=== PATIENT | female | born 1960 | race Caucasian/White ===

== ENCOUNTER 2021-07-25 20:02 | Inpatient (IN) | payer MEDICAID, OTHER ==
[~2021-07-25] VITALS: Ht 154.9 cm; Wt 104.0 kg
[2021-07-25] MEDS ORDERED: methylPREDNISolone SOD SUCC 125 MG/2 ML VL IV ONE (22:00)
[2021-07-25] MEDS ORDERED: ASPirin 325 MG TAB PO ONE (22:00)
[2021-07-25] MEDS ORDERED: ALBUTEROL SULF 2.5 MG/0.5ML(0.5%) NEB SOLN NEB ONE (22:00)
[2021-07-25] MEDS ORDERED: IPRATROPIUM BROM 0.5 MG/2.5ML INH SOL NEB ONE (22:00)
[2021-07-25 22:56] LABS: Basophils # (auto) 0 10 ^3/uL (0-0.2); Basophils % (auto) 0.6 % (0.0-2.0); Eosinophils # (auto) 0.1 10 ^3/uL (0-0.8); Eosinophils % (auto) 1.1 % (0.0-7.0); Hematocrit 34.2 % (36.0-46.0); Hemoglobin 11.1 g/dL (12.2-16.2); Lymphocytes # (auto) 1.3 10 ^3/uL (0.4-5.4); Lymphocytes % (auto) 19.6 % (10.0-50.0); Mean Corpuscular Hemoglobin 29.7 pg (28.0-32.0); Mean Corpuscular Hgb Conc. 32.4 g/dL (32.0-36.0); Mean Corpuscular Volume 91.7 fL (80.0-100.0); Monocytes # (auto) 0.5 10 ^3/uL (0-1.3); Monocytes % (auto) 7.9 % (0.0-12.0); Neutrophils # (auto) 4.8 10 ^3/uL (1.6-8.6); Neutrophils % (auto) 70.8 % (37.0-80.0); Nucleated Red Blood Cells % 0.1 %; Red Blood Cells 3.73 10^6/uL (4.0-5.20); Red Cell Distribution Width 16.1 % (11.8-14.3); White Blood Cell 6.8 10^3/uL (4.4-10.8)
[2021-07-25 23:14] LABS: Albumin 3.1 g/dL (3.4-5.0); BUN/Creatinine Ratio 17.1; Calcium 8.7 mg/dL (8.5-10.1); Potassium 4.1 mmol/L (3.5-5.1)
[2021-07-25 23:17] LABS: Bilirubin, Total 0.3 mg/dL (0.2-1.0); Total Protein 6.5 g/dL (6.4-8.2)
[2021-07-25 23:25] LABS: Urine Bacteria FEW /hpf (None Seen); Urine Blood Negative /uL (Negative); Urine Mucus FEW (None Seen); Urine Specific Gravity 1.025 (1.001-1.035); Urine WBC 1 /hpf (0 - 5)
[2021-07-26] MEDS ORDERED: MORPHINE SULFATE INJECTION 2 MG/ML SYRG IV PRN ×2
[2021-07-26] MEDS ORDERED: ONDANSETRON HCL 4 MG/2 ML VIAL IV PRN
[2021-07-26] MEDS ORDERED: NITROGLYCERIN 0.4 MG SL TAB SL PRN
[2021-07-26] MEDS ORDERED: cefTRIAXone 1GM/50ML D5W 50 ML IV ONE (00:30)
[2021-07-26] MEDS ORDERED: FUROSEMIDE 40 MG/4 ML VIAL IV ONE (00:30)
[2021-07-26] MEDS ORDERED: IPRATROPIUM BROM 0.5 MG/2.5ML INH SOL NEB PRN (00:30)
[2021-07-26] MEDS ORDERED: AZITHROMYCIN 500MG/ 250ML 250 ML IV ONE (00:30)
[2021-07-26] MEDS ORDERED: ALBUTEROL SULF 2.5 MG/0.5ML(0.5%) NEB SOLN NEB PRN ×2 (00:30→10:00)
[2021-07-26 00:59] LABS: Cholesterol 184 mg/dL (< 200)
[2021-07-26 01:00] VITALS: BP 146/77
[2021-07-26 01:00] LABS: Alcohol, Urine < 3.0 mg/dL (0-10); Amphetamine Screen, Urine NEGATIVE (NEGATIVE); Barbiturate Scree,Urine NEGATIVE (NEGATIVE); Benzodiazephine Screen, Urine NEGATIVE (NEGATIVE); Cannabinoid Screen, Urine NEGATIVE (NEGATIVE); Cocaine Screen, Urine NEGATIVE (NEGATIVE); Opiate Scree,Urine NEGATIVE (NEGATIVE); Phencyclidine Screen, Urine NEGATIVE (NEGATIVE)
[2021-07-26 01:02] LABS: HDL Cholesterol 48 mg/dL (40-59); LDL Cholesterol 103 mg/dL (< 100); Triglycerides 152 mg/dL (< 150)
[2021-07-26] MEDS ORDERED: FUROSEMIDE 40 MG/4 ML VIAL IV SCH (06:00)
[2021-07-26] MEDS: cefTRIAXone 1GM/50ML D5W 50 ML IV SCH (09:22)
[2021-07-26] MEDS ORDERED: DEXTROSE (50%) 50ML SYRG IV PRN (09:45)
[2021-07-26] MEDS ORDERED: ACETAMINOPHEN 500 MG TAB PO PRN (10:00)
[2021-07-26] MEDS ORDERED: traMADol HCL 50 MG TAB PO PRN (10:00)
[2021-07-26] MEDS ORDERED: PROMETHAZINE HCL 25 MG/ML 1ML IV PRN (10:00)
[2021-07-26] MEDS: AZITHROMYCIN 500MG/ 250ML 250 ML IV SCH (10:09)
[2021-07-26] MEDS: methylPREDNISolone SOD SUCC 40 MG/ML VL IV SCH ×2 (10:10→21:52)
[2021-07-26] MEDS: NICOTINE 7MG/24HR TOPICAL PATCH TD SCH (10:10)
[2021-07-26] MEDS: ACCU-CHEK COMFORT CURVE STRIP VI SCH ×3 (11:41→21:30)
[2021-07-26] MEDS: InsuLIN REG 1unit/0.01ml Soln (100units/ml) SC SCH ×3 (11:45→21:53)
[2021-07-26] MEDS: IPRATROPIUM BROM 0.5 MG/2.5ML INH SOL NEB SCH ×3 (11:48→23:54)
[2021-07-26] MEDS: ALBUTEROL SULF 2.5 MG/0.5ML(0.5%) NEB SOLN NEB SCH ×3 (11:48→23:54)
[2021-07-26] MEDS: ENOXAPARIN SOD 40 MG/0.4 ML SYRINGE SC SCH (11:49)
[2021-07-26] MEDS ORDERED: ACET250T3 PO (13:10)
[2021-07-26] MEDS ORDERED: GLYB5TAB8 PO (13:10)
[2021-07-26] MEDS ORDERED: FURO1TAB33 PO (13:10)
[2021-07-26] MEDS ORDERED: LISI-716 PO (13:10)
[2021-07-26] MEDS ORDERED: SERT-377 PO (13:10)
[2021-07-26] MEDS ORDERED: METF-370 PO (13:10)
[2021-07-26] MEDS ORDERED: LEVO100T8 PO (13:10)
[2021-07-26 17:00] VITALS: BP 156/75
[2021-07-26] MEDS: BUDESONIDE (INHALATION) 0.5 MG/2 ML NEB NEB SCH (18:30)
[2021-07-26] MEDS: ATORVASTATIN 20 MG TAB PO SCH (21:52)
[2021-07-26 22:00] VITALS: BP 108/54
[2021-07-26] MEDS ORDERED: BUDESONIDE (INHALATION) 180 MCG IH IN SCH (22:00)
[2021-07-27 05:00] VITALS: BP 131/65
[2021-07-27] MEDS: ACCU-CHEK COMFORT CURVE STRIP VI SCH ×4 (06:24→21:10)
[2021-07-27] MEDS: InsuLIN REG 1unit/0.01ml Soln (100units/ml) SC SCH ×4 (06:32→21:18)
[2021-07-27] MEDS: IPRATROPIUM BROM 0.5 MG/2.5ML INH SOL NEB SCH ×3 (08:01→19:02)
[2021-07-27] MEDS: ALBUTEROL SULF 2.5 MG/0.5ML(0.5%) NEB SOLN NEB SCH ×3 (08:01→19:02)
[2021-07-27] MEDS: cefTRIAXone 1GM/50ML D5W 50 ML IV SCH (08:54)
[2021-07-27] MEDS: ENOXAPARIN SOD 40 MG/0.4 ML SYRINGE SC SCH (08:54)
[2021-07-27] MEDS: ASPirin 81 mg TAB PO SCH (08:54)
[2021-07-27] MEDS: AZITHROMYCIN 500MG/ 250ML 250 ML IV SCH (08:54)
[2021-07-27] MEDS: methylPREDNISolone SOD SUCC 40 MG/ML VL IV SCH ×2 (08:54→21:10)
[2021-07-27 09:00] VITALS: BP 140/68
[2021-07-27] MEDS ORDERED: ZINC SULFATE 220mg CAP or TAB PO SCH (10:00)
[2021-07-27] MEDS: NICOTINE 7MG/24HR TOPICAL PATCH TD SCH (10:00)
[2021-07-27] MEDS ORDERED: CHOLECALCIFEROL (VITD3) 2,000 UNIT CAP/TAB PO SCH (10:00)
[2021-07-27] MEDS: BUDESONIDE (INHALATION) 0.5 MG/2 ML NEB NEB SCH ×2 (10:00→19:02)
[2021-07-27] MEDS ORDERED: ASCORBIC ACID 1,000 MG TAB PO SCH (10:00)
[2021-07-27] MEDS ORDERED: LISINOPRIL 10 MG TAB PO ONE (12:00)
[2021-07-27] MEDS ORDERED: SERTRALINE HCL 50 MG TAB PO ONE (12:00)
[2021-07-27 13:00] VITALS: BP 162/85
[2021-07-27 17:00] VITALS: BP 129/66
[2021-07-27] MEDS: ATORVASTATIN 20 MG TAB PO SCH (21:09)
[2021-07-27] MEDS: ZOLPIDEM TARTRATE 5 MG TAB PO PRN (21:21)
[2021-07-27 22:00] VITALS: BP 111/54
[2021-07-28] MEDS: IPRATROPIUM BROM 0.5 MG/2.5ML INH SOL NEB SCH ×4 (00:14→19:14)
[2021-07-28] MEDS: ALBUTEROL SULF 2.5 MG/0.5ML(0.5%) NEB SOLN NEB SCH ×4 (00:15→19:14)
[2021-07-28 05:00] VITALS: BP 115/61
[2021-07-28] MEDS: ACCU-CHEK COMFORT CURVE STRIP VI SCH ×4 (06:07→21:18)
[2021-07-28] MEDS: InsuLIN REG 1unit/0.01ml Soln (100units/ml) SC SCH ×4 (06:12→21:19)
[2021-07-28] MEDS: BUDESONIDE (INHALATION) 0.5 MG/2 ML NEB NEB SCH ×2 (06:16→19:14)
[2021-07-28] MEDS: LEVOTHYROXINE SODIUM 100 MCG TAB PO SCH (06:16)
[2021-07-28] MEDS: cefTRIAXone 1GM/50ML D5W 50 ML IV SCH (08:46)
[2021-07-28] MEDS: ASPirin 81 mg TAB PO SCH (08:47)
[2021-07-28] MEDS: ENOXAPARIN SOD 40 MG/0.4 ML SYRINGE SC SCH (08:47)
[2021-07-28] MEDS: methylPREDNISolone SOD SUCC 40 MG/ML VL IV SCH ×3 (08:47→21:26)
[2021-07-28] MEDS: AZITHROMYCIN 500MG/ 250ML 250 ML IV SCH (08:47)
[2021-07-28 09:00] VITALS: BP 118/61
[2021-07-28] MEDS: NICOTINE 7MG/24HR TOPICAL PATCH TD SCH (09:10)
[2021-07-28] MEDS ORDERED: SERTRALINE HCL 50 MG TAB PO SCH (10:00)
[2021-07-28] MEDS ORDERED: LISINOPRIL 10 MG TAB PO SCH (10:00)
[2021-07-28 13:55] LABS: BUN/Creatinine Ratio 27.9; Calcium 9.3 mg/dL (8.5-10.1); Potassium 4.7 mmol/L (3.5-5.1)
[2021-07-28 17:00] VITALS: BP 124/59
[2021-07-28] MEDS: ATORVASTATIN 20 MG TAB PO SCH (21:25)
[2021-07-28] MEDS: ZOLPIDEM TARTRATE 5 MG TAB PO PRN (21:29)
[2021-07-28] MEDS: hydrALAZINE HCL 20 MG/ML VL IV PRN (21:59)
[2021-07-28 22:00] VITALS: BP 160/86
[2021-07-29] MEDS: IPRATROPIUM BROM 0.5 MG/2.5ML INH SOL NEB SCH ×3 (00:25→11:59)
[2021-07-29] MEDS: ALBUTEROL SULF 2.5 MG/0.5ML(0.5%) NEB SOLN NEB SCH ×3 (00:25→11:59)
[2021-07-29 03:43] VITALS: BP 160/86
[2021-07-29] MEDS: hydrALAZINE HCL 20 MG/ML VL IV PRN (04:07)
[2021-07-29 05:00] VITALS: BP 171/70
[2021-07-29] MEDS: LEVOTHYROXINE SODIUM 100 MCG TAB PO SCH (06:04)
[2021-07-29] MEDS: ACCU-CHEK COMFORT CURVE STRIP VI SCH (06:04)
[2021-07-29] MEDS: InsuLIN REG 1unit/0.01ml Soln (100units/ml) SC SCH (06:14)
[2021-07-29] MEDS: BUDESONIDE (INHALATION) 0.5 MG/2 ML NEB NEB SCH (06:59)
[2021-07-29 09:00] VITALS: BP 124/66
[2021-07-29] MEDS ORDERED: NIC21P TOP (09:18)
[2021-07-29] MEDS ORDERED: AZIT500T66 PO (09:18)
[2021-07-29] MEDS ORDERED: PRED20TA2 PO (09:18)
[2021-07-29] MEDS ORDERED: ALBU0.084 NEB (09:18)
[2021-07-29] MEDS ORDERED: BUDE1AER4 IN (09:18)
[2021-07-29 09:33] VITALS: BP 124/66
== END 2021-07-29 14:50 | disposition home or self-care (01) | DRG 139 ==
LOC: EDBD 20:02 → ER 20:09 → TELE 23:55 → TELE-EAST 07-26 16:18
PROVIDERS: ADMIT Registered Nurse; ATTEND Family Medicine
DX: J18.9 Pneumonia, unspecified organism (principal); J96.21 Acute and chronic respiratory failure with hypoxia; I50.23 Acute on chronic systolic (congestive) heart failure; J44.1 Chronic obstructive pulmonary disease with (acute) exacerbation; E88.09 Other disorders of plasma-protein metabolism, not elsewhere classified; I27.20 Pulmonary hypertension, unspecified; I13.0 Hypertensive heart and chronic kidney disease with heart failure and stage 1 through stage 4 chronic kidney disease, or unspecified chronic kidney disease; E11.22 Type 2 diabetes mellitus with diabetic chronic kidney disease; E03.9 Hypothyroidism, unspecified; E66.9 Obesity, unspecified; E78.5 Hyperlipidemia, unspecified; N18.2 Chronic kidney disease, stage 2 (mild); Z68.41 Body mass index [BMI] 40.0-44.9, adult; E78.00 Pure hypercholesterolemia, unspecified; Z20.822 Contact with and (suspected) exposure to COVID-19; F17.210 Nicotine dependence, cigarettes, uncomplicated; F32.A Depression, unspecified; Z71.6 Tobacco abuse counseling; Z86.16 Personal history of COVID-19
CPT/HCPCS: 36415; 71045; 71046; 80048; 80053; 80061; 80307; 81001; 82962; 83036; 83880; 84443; 84484; 85025; 87070; 87077; 87186; 87205; 93005; 93306; 93886; 94640; 96365; 96368; 96375; G0378; J0696; J1815

== ENCOUNTER 2021-08-24 14:20 | Inpatient (IN) | payer MEDICAID ==
[~2021-08-24] VITALS: Ht 157.5 cm; Wt 104.1 kg
[~2021-08-24 14:20] MED LIST: ACET250T3 PO; ALBU0.084 NEB; AZIT500T66 PO; BUDE1AER4 IN; FURO1TAB33 PO; GLYB5TAB8 PO; LEVO100T8 PO; LISI-716 PO; METF-370 PO; NIC21P TOP; PRED20TA2 PO; SERT-377 PO
[2021-08-24] MEDS ORDERED: ALBUTEROL SULF 2.5 MG/0.5ML(0.5%) NEB SOLN HHN ONE (14:45)
[2021-08-24] MEDS ORDERED: IPRATROPIUM BROM 0.5 MG/2.5ML INH SOL HHN ONE (14:45)
[2021-08-24] MEDS ORDERED: methylPREDNISolone SOD SUCC 125 MG/2 ML VL IV ONE (14:45)
[2021-08-24 15:36] LABS: Albumin 2.8 g/dL (3.4-5.0); Anion Gap 2 (5-15); Blood Urea Nitrogen 14 mg/dL (7-18); Calcium 8.5 mg/dL (8.5-10.1); Carbon Dioxide 40 mmol/L (21-32); Chloride 99 mmol/L (98-107); GFR African American 128 mL/min; GFR Non-African American 106 mL/min; Glucose 187 mg/dL (74-106); Potassium 4.5 mmol/L (3.5-5.1); Sodium 141 mmol/L (136-145)
[2021-08-24 15:39] LABS: Alanine Aminotransferase 15 U/L (13-56); Alkaline Phosphatase 86 U/L (45-117); Aspartate Aminotransferase 11 U/L (15-37); Bilirubin, Total 0.6 mg/dL (0.2-1.0); Total Protein 6.7 g/dL (6.4-8.2)
[2021-08-24 16:01] LABS: Basophils # (auto) 0.1 10 ^3/uL (0-0.2); Basophils % (auto) 1.4 % (0.0-2.0); Eosinophils # (auto) 0 10 ^3/uL (0-0.8); Eosinophils % (auto) 0.8 % (0.0-7.0); Hematocrit 35.8 % (36.0-46.0); Hemoglobin 11.4 g/dL (12.2-16.2); Lymphocytes # (auto) 0.8 10 ^3/uL (0.4-5.4); Lymphocytes % (auto) 12.9 % (10.0-50.0); Mean Corpuscular Hemoglobin 29.5 pg (28.0-32.0); Mean Corpuscular Volume 92.2 fL (80.0-100.0); Monocytes # (auto) 0.4 10 ^3/uL (0-1.3); Monocytes % (auto) 6.7 % (0.0-12.0); Neutrophils # (auto) 4.9 10 ^3/uL (1.6-8.6); Neutrophils % (auto) 78.2 % (37.0-80.0); Red Blood Cells 3.88 10^6/uL (4.0-5.20); White Blood Cell 6.3 10^3/uL (4.4-10.8)
[2021-08-24] MEDS ORDERED: DEXTROSE (50%) 50ML SYRG IV PRN (17:00)
[2021-08-24] MEDS ORDERED: NITROGLYCERIN 0.4 MG SL TAB SL PRN (17:00)
[2021-08-24] MEDS ORDERED: MORPHINE SULFATE INJ 2 MG/ml SYRG IV PRN ×2 (17:00→21:00)
[2021-08-24] MEDS: ACCU-CHEK COMFORT CURVE STRIP VI SCH ×2 (18:00→23:17)
[2021-08-24] MEDS: InsuLIN REG 1unit/0.01ml Soln (100units/ml) SC SCH ×2 (18:00→23:26)
[2021-08-24] MEDS ORDERED: HYDROcodone-ACET 5/325MG TAB PO PRN (21:00)
[2021-08-24] MEDS ORDERED: ONDANSETRON HCL 4 MG/2 ML VIAL IV PRN (21:00)
[2021-08-24] MEDS ORDERED: LORazepam 0.5 MG TAB PO PRN (21:00)
[2021-08-24] MEDS ORDERED: DOCUSATE SOD 100 MG CAP PO PRN (21:00)
[2021-08-24] MEDS ORDERED: ACETAMINOPHEN 325 MG TAB PO PRN (21:00)
[2021-08-24] MEDS ORDERED: hydrALAZINE HCL 20 MG/ML VL IV PRN (21:00)
[2021-08-24] MEDS ORDERED: PROMETHAZINE-DM 5 ML ORAL SYRUP PO PRN (21:00)
[2021-08-24] MEDS ORDERED: METOCLOPRAMIDE HCL 5MG/ml INJ 2ml VIAL IV PRN (21:00)
[2021-08-24 21:29] LABS: Magnesium 1.9 mg/dL (1.6-2.6); Phosphorus 2.1 mg/dL (2.5-4.90)
[2021-08-24] MEDS: BUDESONIDE (INHALATION) 0.5 MG/2 ML NEB NEB SCH (21:59)
[2021-08-24] MEDS: ALBUTEROL SULF 2.5 MG/0.5ML(0.5%) NEB SOLN NEB PRN (21:59)
[2021-08-24] MEDS ORDERED: IPRATROPIUM BROM 0.5 MG/2.5ML INH SOL ONE (21:59)
[2021-08-24] MEDS ORDERED: IPRATROPIUM BROM 0.5 MG/2.5ML INH SOL NEB PRN (22:00)
[2021-08-24] MEDS ORDERED: IPRATROPIUM BROM 0.5 MG/2.5ML INH SOL NEB SCH (22:00)
[2021-08-24 23:00] VITALS: BP 130/79
[2021-08-24] MEDS: ATORVASTATIN 20 MG TAB PO SCH (23:23)
[2021-08-24] MEDS: methylPREDNISolone SOD SUCC 40 MG/ML VL IV SCH (23:23)
[2021-08-24] MEDS: acetaZOLAMIDE 250 MG TAB PO SCH (23:38)
[2021-08-25] VITALS (7 sets, daily range): BP systolic 105–132; BP diastolic 46–62
[2021-08-25 00:40] LABS: INR 0.99 (0.9-1.15); Partial Thromboplastin Time 23.1 sec (23.6-33.0)
[2021-08-25] MEDS ORDERED: FUROSEMIDE 20 MG/2 ML VIAL IV SCH (06:00)
[2021-08-25] MEDS: ACCU-CHEK COMFORT CURVE STRIP VI SCH ×4 (06:07→21:25)
[2021-08-25] MEDS: InsuLIN REG 1unit/0.01ml Soln (100units/ml) SC SCH ×4 (06:13→21:25)
[2021-08-25] MEDS: LEVOTHYROXINE SODIUM 100 MCG TAB PO SCH (06:14)
[2021-08-25] MEDS: acetaZOLAMIDE 250 MG TAB PO SCH (06:14)
[2021-08-25] MEDS: methylPREDNISolone SOD SUCC 40 MG/ML VL IV SCH ×2 (06:15→21:39)
[2021-08-25 06:54] LABS: Basophils # (auto) 0 10 ^3/uL (0-0.2); Eosinophils # (auto) 0 10 ^3/uL (0-0.8); Hematocrit 34.5 % (36.0-46.0); Lymphocytes # (auto) 0.4 10 ^3/uL (0.4-5.4); Lymphocytes % (auto) 5.2 % (10.0-50.0); Mean Corpuscular Hemoglobin 29.7 pg (28.0-32.0); Mean Corpuscular Volume 93.1 fL (80.0-100.0); Monocytes # (auto) 0.1 10 ^3/uL (0-1.3); Monocytes % (auto) 1.6 % (0.0-12.0); Neutrophils # (auto) 7.3 10 ^3/uL (1.6-8.6); Neutrophils % (auto) 93.2 % (37.0-80.0); Nucleated Red Blood Cells % 0.1 %; Red Blood Cells 3.71 10^6/uL (4.0-5.20); Red Cell Distribution Width 15.4 % (11.8-14.3); White Blood Cell 7.8 10^3/uL (4.4-10.8)
[2021-08-25 07:10] LABS: Albumin 2.9 g/dL (3.4-5.0); Magnesium 2.2 mg/dL (1.6-2.6); Potassium 4.4 mmol/L (3.5-5.1); Uric Acid 3.6 mg/dL (2.6-6.0)
[2021-08-25 07:15] LABS: BUN/Creatinine Ratio 23.4; Bilirubin, Total 0.4 mg/dL (0.2-1.0); CRP High Sensitivity 0.59 mg/dL (< 0.3); Phosphorus 2.6 mg/dL (2.5-4.90); Total Protein 6.7 g/dL (6.4-8.2)
[2021-08-25 07:25] LABS: Urine Bacteria NONE SEEN /hpf (None Seen); Urine Blood TRACE /uL (Negative); Urine Specific Gravity 1.021 (1.001-1.035); Urine WBC <1 /hpf (0 - 5)
[2021-08-25 07:29] LABS: INR 0.99 (0.9-1.15); Partial Thromboplastin Time 23.6 sec (23.6-33.0)
[2021-08-25 07:35] LABS: Alcohol, Urine < 3.0 mg/dL (0-10); Amphetamine Screen, Urine NEGATIVE (NEGATIVE); Barbiturate Scree,Urine NEGATIVE (NEGATIVE); Benzodiazephine Screen, Urine NEGATIVE (NEGATIVE); Cannabinoid Screen, Urine NEGATIVE (NEGATIVE); Cocaine Screen, Urine NEGATIVE (NEGATIVE); Opiate Scree,Urine NEGATIVE (NEGATIVE); Phencyclidine Screen, Urine NEGATIVE (NEGATIVE); Protein, Urine 26.2 mg/dL (0.0-11.9)
[2021-08-25] MEDS ORDERED: AZITHROMYCIN 500MG/ 250ML 250 ML IV SCH (10:00)
[2021-08-25] MEDS ORDERED: NICOTINE 21MG/24 HR TOPICAL PATCH TD SCH (10:00)
[2021-08-25] MEDS ORDERED: FAMOTIDINE (10MG/ML) 2ML VL IV SCH (10:00)
[2021-08-25] MEDS: ENOXAPARIN SOD 40 MG/0.4 ML SYRINGE SC SCH (10:06)
[2021-08-25] MEDS: ASPirin 81 mg TAB PO SCH (10:07)
[2021-08-25] MEDS: SERTRALINE HCL 50 MG TAB PO SCH (10:07)
[2021-08-25] MEDS: ALBUTEROL SULF 2.5 MG/0.5ML(0.5%) NEB SOLN NEB PRN (10:16)
[2021-08-25] MEDS: BUDESONIDE (INHALATION) 0.5 MG/2 ML NEB NEB SCH ×2 (10:16→19:09)
[2021-08-25] MEDS: ALBUTEROL SULF 2.5 MG/0.5ML(0.5%) NEB SOLN NEB SCH (19:08)
[2021-08-25] MEDS: IPRATROPIUM BROM 0.5 MG/2.5ML INH SOL NEB SCH (19:08)
[2021-08-25] MEDS: ATORVASTATIN 20 MG TAB PO SCH (21:25)
[2021-08-25] MEDS: DOCUSATE SOD 100 MG CAP PO PRN (21:39)
[2021-08-25] MEDS: ZOLPIDEM TARTRATE 5 MG TAB PO PRN (21:40)
[2021-08-26] MEDS: ALBUTEROL SULF 2.5 MG/0.5ML(0.5%) NEB SOLN NEB SCH ×3 (00:57→18:36)
[2021-08-26] MEDS: IPRATROPIUM BROM 0.5 MG/2.5ML INH SOL NEB SCH ×3 (00:57→18:36)
[2021-08-26 05:00] VITALS: BP 112/65
[2021-08-26] MEDS: ACCU-CHEK COMFORT CURVE STRIP VI SCH ×4 (06:33→22:00)
[2021-08-26] MEDS: LEVOTHYROXINE SODIUM 100 MCG TAB PO SCH (06:34)
[2021-08-26] MEDS: InsuLIN REG 1unit/0.01ml Soln (100units/ml) SC SCH ×4 (06:43→22:03)
[2021-08-26] MEDS: BUDESONIDE (INHALATION) 0.5 MG/2 ML NEB NEB SCH ×2 (06:58→18:36)
[2021-08-26 07:23] LABS: Potassium 4.5 mmol/L (3.5-5.1)
[2021-08-26 07:31] LABS: Albumin 2.9 g/dL (3.4-5.0); BUN/Creatinine Ratio 33.8; Bilirubin, Total 0.4 mg/dL (0.2-1.0); Calcium 8.6 mg/dL (8.5-10.1); Total Protein 6.5 g/dL (6.4-8.2)
[2021-08-26 09:00] VITALS: BP 141/67
[2021-08-26] MEDS ORDERED: FUROSEMIDE 20 MG/2 ML VIAL IV SCH (10:00)
[2021-08-26] MEDS: AZITHROMYCIN 250 MG TAB PO SCH (10:29)
[2021-08-26] MEDS: SERTRALINE HCL 50 MG TAB PO SCH (10:29)
[2021-08-26] MEDS: methylPREDNISolone SOD SUCC 40 MG/ML VL IV SCH ×2 (10:30→21:56)
[2021-08-26] MEDS: ASPirin 81 mg TAB PO SCH (10:30)
[2021-08-26] MEDS: FAMOTIDINE 20 MG TAB PO SCH (10:30)
[2021-08-26] MEDS: ENOXAPARIN SOD 40 MG/0.4 ML SYRINGE SC SCH (10:31)
[2021-08-26 13:00] VITALS: BP 150/78
[2021-08-26] MEDS: DOCUSATE SOD 100 MG CAP PO PRN (16:58)
[2021-08-26 17:00] VITALS: BP 144/84
[2021-08-26] MEDS: ATORVASTATIN 20 MG TAB PO SCH (21:55)
[2021-08-26 22:00] VITALS: BP 135/61
[2021-08-26] MEDS: ZOLPIDEM TARTRATE 5 MG TAB PO PRN (22:23)
[2021-08-27] MEDS: IPRATROPIUM BROM 0.5 MG/2.5ML INH SOL NEB SCH ×3 (00:15→11:41)
[2021-08-27] MEDS: ALBUTEROL SULF 2.5 MG/0.5ML(0.5%) NEB SOLN NEB SCH ×3 (00:16→11:41)
[2021-08-27 05:00] VITALS: BP 145/74
[2021-08-27] MEDS: LEVOTHYROXINE SODIUM 100 MCG TAB PO SCH (06:17)
[2021-08-27] MEDS: ACCU-CHEK COMFORT CURVE STRIP VI SCH ×2 (06:17→11:46)
[2021-08-27] MEDS: InsuLIN REG 1unit/0.01ml Soln (100units/ml) SC SCH ×2 (06:18→11:45)
[2021-08-27] MEDS: BUDESONIDE (INHALATION) 0.5 MG/2 ML NEB NEB SCH (06:24)
[2021-08-27] MEDS: ASPirin 81 mg TAB PO SCH (09:50)
[2021-08-27] MEDS: FAMOTIDINE 20 MG TAB PO SCH (09:50)
[2021-08-27] MEDS: methylPREDNISolone SOD SUCC 40 MG/ML VL IV SCH (09:50)
[2021-08-27] MEDS: AZITHROMYCIN 250 MG TAB PO SCH (09:51)
[2021-08-27] MEDS: ENOXAPARIN SOD 40 MG/0.4 ML SYRINGE SC SCH (09:51)
[2021-08-27] MEDS: SERTRALINE HCL 50 MG TAB PO SCH (09:51)
[2021-08-27] MEDS ORDERED: FUROSEMIDE 40 MG TAB PO SCH (10:00)
[2021-08-27 10:09] VITALS: BP 143/69
[2021-08-27 10:52] VITALS: BP 143/69
[2021-08-27 12:00] VITALS: BP 151/78
== END 2021-08-27 15:45 | disposition home or self-care (01) | DRG 140 ==
LOC: ER 14:20 → EDBD 14:20 → OVERFLOW 16:51 → EAST 21:50
PROVIDERS: ADMIT Hospitalist; ATTEND Internal Medicine
DX: J44.1 Chronic obstructive pulmonary disease with (acute) exacerbation (principal); J96.21 Acute and chronic respiratory failure with hypoxia; I50.33 Acute on chronic diastolic (congestive) heart failure; I27.21 Secondary pulmonary arterial hypertension; I11.0 Hypertensive heart disease with heart failure; E03.9 Hypothyroidism, unspecified; F32.A Depression, unspecified; Z20.822 Contact with and (suspected) exposure to COVID-19; E11.9 Type 2 diabetes mellitus without complications; E66.01 Morbid (severe) obesity due to excess calories; I25.2 Old myocardial infarction; Z79.84 Long term (current) use of oral hypoglycemic drugs; Z68.41 Body mass index [BMI] 40.0-44.9, adult; Z87.891 Personal history of nicotine dependence; Z79.51 Long term (current) use of inhaled steroids; Z79.899 Other long term (current) drug therapy
CPT/HCPCS: 36415; 36600; 71045; 80053; 80061; 80307; 81001; 82550; 82728; 82805; 82962; 83605; 83615; 83690; 83735; 83880; 84100; 84156; 84443; 84484; 84550; 85025; 85379; 85610; 85652; 85730; 86141; 87040; 87070; 87077; 87081; 87086; 87186; 87205; 93005; 93970; 94640; 96374; 99291; G0378; J1815; J3490

== ENCOUNTER 2021-10-04 22:27 | Inpatient (IN) | payer MEDICAID ==
[~2021-10-04] VITALS: Ht 200.7 cm; Wt 68.3 kg
[2021-10-04] MEDS ORDERED: cefTRIAXone 1GM/50ML D5W 50 ML IV ONE (22:45)
[2021-10-04] MEDS ORDERED: methylPREDNISolone SOD SUCC 125 MG/2 ML VL IV ONE (22:45)
[2021-10-04] MEDS ORDERED: ALBUTEROL SULF 2.5 MG/0.5ML(0.5%) NEB SOLN NEB ONE (22:45)
[2021-10-04] MEDS ORDERED: FUROSEMIDE 40 MG/4 ML VIAL IV ONE (22:45)
[2021-10-04] MEDS ORDERED: IPRATROPIUM BROM 0.5 MG/2.5ML INH SOL NEB ONE (22:45)
[2021-10-04 23:51] LABS: Basophils # (auto) 0 10 ^3/uL (0-0.2); Basophils % (auto) 0.3 % (0.0-2.0); Eosinophils # (auto) 0.1 10 ^3/uL (0-0.8); Eosinophils % (auto) 0.8 % (0.0-7.0); Hematocrit 33.6 % (36.0-46.0); Hemoglobin 10.6 g/dL (12.2-16.2); Lymphocytes # (auto) 0.9 10 ^3/uL (0.4-5.4); Lymphocytes % (auto) 10.1 % (10.0-50.0); Mean Corpuscular Hemoglobin 28.7 pg (28.0-32.0); Mean Corpuscular Hgb Conc. 31.5 g/dL (32.0-36.0); Mean Corpuscular Volume 91.2 fL (80.0-100.0); Monocytes # (auto) 0.8 10 ^3/uL (0-1.3); Monocytes % (auto) 9.6 % (0.0-12.0); Neutrophils # (auto) 6.9 10 ^3/uL (1.6-8.6); Neutrophils % (auto) 79.2 % (37.0-80.0); Red Blood Cells 3.69 10^6/uL (4.0-5.20); Red Cell Distribution Width 16.5 % (11.8-14.3); White Blood Cell 8.7 10^3/uL (4.4-10.8)
[2021-10-05 00:08] LABS: Albumin 3.1 g/dL (3.4-5.0); BUN/Creatinine Ratio 20.6; Calcium 9.4 mg/dL (8.5-10.1); Potassium 3.9 mmol/L (3.5-5.1)
[2021-10-05 00:11] LABS: Bilirubin, Total 0.4 mg/dL (0.2-1.0); Total Protein 6.9 g/dL (6.4-8.2)
[2021-10-05] MEDS ORDERED: ALBUTEROL SULF 2.5 MG/0.5ML(0.5%) NEB SOLN NEB PRN (00:15)
[2021-10-05] MEDS ORDERED: ACETAMINOPHEN 325 MG TAB PO PRN (00:15)
[2021-10-05] MEDS ORDERED: NITROGLYCERIN 0.4 MG SL TAB SL PRN (00:15)
[2021-10-05] MEDS ORDERED: MORPHINE SULFATE INJ 2 MG/ml SYRG IV PRN ×2 (00:15)
[2021-10-05] MEDS ORDERED: HYDROcodone-ACET 5/325MG TAB PO PRN (00:15)
[2021-10-05] MEDS ORDERED: DEXTROSE (50%) 50ML SYRG IV PRN (00:15)
[2021-10-05] MEDS ORDERED: DOCUSATE SOD 100 MG CAP PO PRN (00:15)
[2021-10-05] MEDS ORDERED: ONDANSETRON HCL 4 MG/2 ML VIAL IV PRN (00:15)
[2021-10-05] MEDS ORDERED: LORazepam 0.5 MG TAB PO PRN (00:15)
[2021-10-05 01:19] VITALS: BP 121/70
[2021-10-05 04:55] LABS: Basophils # (auto) 0 10 ^3/uL (0-0.2); Basophils % (auto) 0.2 % (0.0-2.0); Eosinophils # (auto) 0 10 ^3/uL (0-0.8); Eosinophils % (auto) 0.1 % (0.0-7.0); Hematocrit 31.7 % (36.0-46.0); Hemoglobin 10.5 g/dL (12.2-16.2); Lymphocytes # (auto) 0.4 10 ^3/uL (0.4-5.4); Lymphocytes % (auto) 3.4 % (10.0-50.0); Mean Corpuscular Hemoglobin 30.3 pg (28.0-32.0); Mean Corpuscular Hgb Conc. 33.2 g/dL (32.0-36.0); Mean Corpuscular Volume 91.2 fL (80.0-100.0); Monocytes # (auto) 0.2 10 ^3/uL (0-1.3); Monocytes % (auto) 1.4 % (0.0-12.0); Neutrophils # (auto) 10.6 10 ^3/uL (1.6-8.6); Neutrophils % (auto) 94.9 % (37.0-80.0); Red Blood Cells 3.48 10^6/uL (4.0-5.20); Red Cell Distribution Width 16.7 % (11.8-14.3); White Blood Cell 11.1 10^3/uL (4.4-10.8)
[2021-10-05 05:13] LABS: Calcium 8.3 mg/dL (8.5-10.1); Potassium 4.7 mmol/L (3.5-5.1)
[2021-10-05 05:16] LABS: BUN/Creatinine Ratio 21.5
[2021-10-05] MEDS: ACCU-CHEK COMFORT CURVE STRIP VI SCH ×3 (06:03→19:36)
[2021-10-05] MEDS: InsuLIN REG 1unit/0.01ml Soln (100units/ml) SC SCH ×4 (06:04→19:39)
[2021-10-05] MEDS: FUROSEMIDE 40 MG/4 ML VIAL IV SCH (10:12)
[2021-10-05] MEDS: cefTRIAXone 1GM/50ML D5W 50 ML IV SCH (10:12)
[2021-10-05] MEDS: methylPREDNISolone SOD SUCC 40 MG/ML VL IV SCH (10:12)
[2021-10-05 10:15] LABS: Urine Bacteria FEW /hpf (None Seen); Urine Blood 1+ /uL (Negative); Urine Mucus FEW (None Seen); Urine Specific Gravity 1.015 (1.001-1.035); Urine WBC 2 /hpf (0 - 5)
[2021-10-05] MEDS: SERTRALINE HCL 50 MG TAB PO SCH (12:22)
[2021-10-05] MEDS: LEVOTHYROXINE SODIUM 100 MCG TAB PO SCH (12:22)
[2021-10-05] MEDS: IPRATROPIUM BROM 0.5 MG/2.5ML INH SOL NEB PRN (13:04)
[2021-10-05] MEDS: ALBUTEROL SULF 2.5 MG/0.5ML(0.5%) NEB SOLN NEB SCH ×3 (14:00→21:52)
[2021-10-05] MEDS: IPRATROPIUM BROM 0.5 MG/2.5ML INH SOL NEB SCH ×3 (14:00→21:52)
[2021-10-05 16:39] VITALS: BP 114/83
[2021-10-05 17:00] VITALS: BP 144/69
[2021-10-05 22:06] VITALS: BP 123/59
[2021-10-06] MEDS: IPRATROPIUM BROM 0.5 MG/2.5ML INH SOL NEB SCH ×6 (01:51→23:12)
[2021-10-06] MEDS: ALBUTEROL SULF 2.5 MG/0.5ML(0.5%) NEB SOLN NEB SCH ×6 (01:51→23:12)
[2021-10-06 05:02] VITALS: BP 105/56
[2021-10-06] MEDS: InsuLIN REG 1unit/0.01ml Soln (100units/ml) SC SCH ×4 (06:00→17:41)
[2021-10-06] MEDS: ACCU-CHEK COMFORT CURVE STRIP VI SCH ×4 (06:09→17:24)
[2021-10-06 09:00] VITALS: BP 128/68
[2021-10-06] MEDS: methylPREDNISolone SOD SUCC 40 MG/ML VL IV SCH (09:51)
[2021-10-06] MEDS: FUROSEMIDE 40 MG/4 ML VIAL IV SCH (09:52)
[2021-10-06] MEDS: SERTRALINE HCL 50 MG TAB PO SCH (09:53)
[2021-10-06] MEDS: ENOXAPARIN SOD 40 MG/0.4 ML SYRINGE SC SCH (09:53)
[2021-10-06] MEDS: cefTRIAXone 1GM/50ML D5W 50 ML IV SCH (09:55)
[2021-10-06] MEDS: LEVOTHYROXINE SODIUM 100 MCG TAB PO SCH (09:55)
[2021-10-06] MEDS ORDERED: SERTRALINE HCL 50 MG TAB PO SCH (10:00)
[2021-10-06 13:00] VITALS: BP 136/73
[2021-10-06 17:00] VITALS: BP 151/60
[2021-10-06] MEDS ORDERED: FURO1TAB31 PO (18:45)
[2021-10-06] MEDS ORDERED: ATOR10TA PO (18:45)
[2021-10-06] MEDS: BUDESONIDE (INHALATION) 0.5 MG/2 ML NEB NEB SCH (19:34)
[2021-10-06] MEDS: DOXYCYCLINE 100 MG TAB/CAP PO SCH (21:30)
[2021-10-06] MEDS: ATORVASTATIN 20 MG TAB PO SCH (21:30)
[2021-10-06] MEDS: FAMOTIDINE 20 MG TAB PO SCH (21:30)
[2021-10-06] MEDS: INSULIN LANTUS (GLARGINE) 1 /0.01ml (100units/ml) SC SCH (21:38)
[2021-10-07] MEDS: ALBUTEROL SULF 2.5 MG/0.5ML(0.5%) NEB SOLN NEB SCH ×6 (02:26→22:18)
[2021-10-07] MEDS: IPRATROPIUM BROM 0.5 MG/2.5ML INH SOL NEB PRN (02:27)
[2021-10-07 05:00] VITALS: BP 134/73
[2021-10-07] MEDS: ACCU-CHEK COMFORT CURVE STRIP VI SCH ×4 (06:00→18:35)
[2021-10-07] MEDS: InsuLIN REG 1unit/0.01ml Soln (100units/ml) SC SCH ×4 (06:00→18:36)
[2021-10-07 06:13] LABS: Basophils # (auto) 0 10 ^3/uL (0-0.2); Basophils % (auto) 0.1 % (0.0-2.0); Eosinophils # (auto) 0.1 10 ^3/uL (0-0.8); Eosinophils % (auto) 0.6 % (0.0-7.0); Hematocrit 31.1 % (36.0-46.0); Hemoglobin 9.9 g/dL (12.2-16.2); Lymphocytes # (auto) 1.3 10 ^3/uL (0.4-5.4); Lymphocytes % (auto) 14.6 % (10.0-50.0); Mean Corpuscular Hemoglobin 28.6 pg (28.0-32.0); Mean Corpuscular Hgb Conc. 31.8 g/dL (32.0-36.0); Mean Corpuscular Volume 89.9 fL (80.0-100.0); Monocytes # (auto) 0.8 10 ^3/uL (0-1.3); Monocytes % (auto) 9.2 % (0.0-12.0); Neutrophils # (auto) 6.6 10 ^3/uL (1.6-8.6); Neutrophils % (auto) 75.5 % (37.0-80.0); Nucleated Red Blood Cells % 0.1 %; Red Blood Cells 3.46 10^6/uL (4.0-5.20); White Blood Cell 8.7 10^3/uL (4.4-10.8)
[2021-10-07] MEDS: BUDESONIDE (INHALATION) 0.5 MG/2 ML NEB NEB SCH ×2 (06:15→22:18)
[2021-10-07] MEDS: IPRATROPIUM BROM 0.5 MG/2.5ML INH SOL NEB SCH ×5 (06:15→22:18)
[2021-10-07 06:33] LABS: BUN/Creatinine Ratio 34.9; Magnesium 2.3 mg/dL (1.6-2.6)
[2021-10-07 08:10] VITALS: BP 131/74
[2021-10-07 09:00] VITALS: BP 131/74
[2021-10-07] MEDS: methylPREDNISolone SOD SUCC 40 MG/ML VL IV SCH (10:46)
[2021-10-07] MEDS: FUROSEMIDE 20 MG TAB PO SCH (10:46)
[2021-10-07] MEDS: SERTRALINE HCL 50 MG TAB PO SCH (10:47)
[2021-10-07] MEDS: FAMOTIDINE 20 MG TAB PO SCH ×2 (10:47→22:47)
[2021-10-07] MEDS: DOXYCYCLINE 100 MG TAB/CAP PO SCH ×2 (10:47→22:47)
[2021-10-07] MEDS: ENOXAPARIN SOD 40 MG/0.4 ML SYRINGE SC SCH (10:47)
[2021-10-07 13:00] VITALS: BP 135/69
[2021-10-07] MEDS ORDERED: guaiFENesin-DM 100/10mg/5ml SYR PO PRN ×2 (13:00→17:30)
[2021-10-07] MEDS ORDERED: CHOLECALCIFEROL (VITD3) 2,000 UNIT CAP/TAB PO ONE (13:00)
[2021-10-07 13:28] LABS: % Iron Saturation 18.2 % (15-50)
[2021-10-07 17:03] VITALS: BP 145/81
[2021-10-07 22:00] VITALS: BP 144/67
[2021-10-07] MEDS: INSULIN LANTUS (GLARGINE) 1 /0.01ml (100units/ml) SC SCH (22:00)
[2021-10-07] MEDS: ATORVASTATIN 20 MG TAB PO SCH (22:47)
[2021-10-08 00:56] VITALS: BP 144/67
[2021-10-08] MEDS: ALBUTEROL SULF 2.5 MG/0.5ML(0.5%) NEB SOLN NEB SCH ×4 (02:51→13:53)
[2021-10-08 05:00] VITALS: BP 143/84
[2021-10-08] MEDS: InsuLIN REG 1unit/0.01ml Soln (100units/ml) SC SCH ×3 (06:00→12:34)
[2021-10-08] MEDS: BUDESONIDE (INHALATION) 0.5 MG/2 ML NEB NEB SCH (06:16)
[2021-10-08] MEDS: IPRATROPIUM BROM 0.5 MG/2.5ML INH SOL NEB SCH ×3 (06:16→13:53)
[2021-10-08] MEDS: ACCU-CHEK COMFORT CURVE STRIP VI SCH ×3 (06:16→12:35)
[2021-10-08 06:21] LABS: Hematocrit 31.5 % (36.0-46.0); Hemoglobin 10.1 g/dL (12.2-16.2)
[2021-10-08 06:38] LABS: BUN/Creatinine Ratio 28.3; Calcium 8.8 mg/dL (8.5-10.1); Potassium 3.8 mmol/L (3.5-5.1)
[2021-10-08] MEDS ORDERED: LEVOTHYROXINE SODIUM 100 MCG TAB PO SCH ×2 (07:00)
[2021-10-08] MEDS ORDERED: LEVOTHYROXINE SODIUM 25 MCG TAB PO SCH (07:00)
[2021-10-08 08:00] VITALS: BP 142/78
[2021-10-08 09:00] VITALS: BP 142/78
[2021-10-08] MEDS ORDERED: CHOLECALCIFEROL (VITD3) 2,000 UNIT CAP/TAB PO SCH (10:00)
[2021-10-08] MEDS: methylPREDNISolone SOD SUCC 40 MG/ML VL IV SCH (10:03)
[2021-10-08] MEDS: DOXYCYCLINE 100 MG TAB/CAP PO SCH (10:04)
[2021-10-08] MEDS: FUROSEMIDE 20 MG TAB PO SCH (10:04)
[2021-10-08] MEDS: SERTRALINE HCL 50 MG TAB PO SCH (10:04)
[2021-10-08] MEDS: ENOXAPARIN SOD 40 MG/0.4 ML SYRINGE SC SCH (10:04)
[2021-10-08] MEDS: FAMOTIDINE 20 MG TAB PO SCH (10:04)
[2021-10-08] MEDS ORDERED: SODIUM CHLORIDE 0.9 % NEB SOLN 3ML NEB ONE (10:55)
[2021-10-08 13:00] VITALS: BP 140/83
[2021-10-08 13:45] VITALS: BP 142/78
== END 2021-10-08 16:19 | disposition home or self-care (01) | DRG 140 ==
LOC: EDBD 22:27 → ER 22:27 → TELE 10-05 00:15 → TELE-EAST 10-05 15:55
PROVIDERS: ADMIT Hospitalist; ATTEND Internal Medicine
DX: J44.1 Chronic obstructive pulmonary disease with (acute) exacerbation (principal); J96.20 Acute and chronic respiratory failure, unspecified whether with hypoxia or hypercapnia; I27.20 Pulmonary hypertension, unspecified; I50.32 Chronic diastolic (congestive) heart failure; I11.0 Hypertensive heart disease with heart failure; J20.9 Acute bronchitis, unspecified; E03.9 Hypothyroidism, unspecified; Z20.822 Contact with and (suspected) exposure to COVID-19; E11.9 Type 2 diabetes mellitus without complications; F32.A Depression, unspecified; E78.5 Hyperlipidemia, unspecified; E56.9 Vitamin deficiency, unspecified; J98.11 Atelectasis; I25.2 Old myocardial infarction; Z87.891 Personal history of nicotine dependence; Z71.6 Tobacco abuse counseling
CPT/HCPCS: 36415; 71045; 71250; 80048; 80053; 80061; 81001; 82306; 82962; 83036; 83540; 83550; 83735; 83880; 84436; 84443; 84480; 84484; 85014; 85018; 85025; 87804; 93005; 94640; 96365; 96375; 99291; G0378; J0696; J1815

== ENCOUNTER 2021-11-17 15:49 | Inpatient (IN) | payer MEDICAID ==
[~2021-11-17] VITALS: Ht 157.5 cm; Wt 98.1 kg
[~2021-11-17 15:49] MED LIST changes: +ATOR10TA PO; +FURO1TAB31 PO
[2021-11-17] MEDS ORDERED: methylPREDNISolone SOD SUCC 125 MG/2 ML VL IV ONE (16:00)
[2021-11-17 17:01] LABS: Basophils # (auto) 0.1 10 ^3/uL (0-0.2); Basophils % (auto) 0.7 % (0.0-2.0); Eosinophils # (auto) 0.1 10 ^3/uL (0-0.8); Eosinophils % (auto) 0.7 % (0.0-7.0); Hematocrit 36.1 % (36.0-46.0); Hemoglobin 11.2 g/dL (12.2-16.2); Lymphocytes # (auto) 1.4 10 ^3/uL (0.4-5.4); Lymphocytes % (auto) 15.4 % (10.0-50.0); Mean Corpuscular Hgb Conc. 31.1 g/dL (32.0-36.0); Mean Corpuscular Volume 89.7 fL (80.0-100.0); Monocytes # (auto) 0.7 10 ^3/uL (0-1.3); Monocytes % (auto) 7.3 % (0.0-12.0); Neutrophils # (auto) 6.8 10 ^3/uL (1.6-8.6); Neutrophils % (auto) 75.9 % (37.0-80.0); Red Blood Cells 4.02 10^6/uL (4.0-5.20); Red Cell Distribution Width 16.1 % (11.8-14.3)
[2021-11-17 17:21] LABS: Albumin 3.2 g/dL (3.4-5.0); Calcium 9.3 mg/dL (8.5-10.1); Potassium 3.9 mmol/L (3.5-5.1)
[2021-11-17 17:32] LABS: Bilirubin, Total 0.4 mg/dL (0.2-1.0); Total Protein 7.1 g/dL (6.4-8.2)
[2021-11-17] MEDS ORDERED: IPRATROPIUM BROM 0.5 MG/2.5ML INH SOL NEB ONE (19:15)
[2021-11-17] MEDS ORDERED: HYDROcodone-ACET 5/325MG TAB PO PRN (19:15)
[2021-11-17] MEDS ORDERED: MORPHINE SULFATE INJ 2 MG/ml SYRG IV PRN (19:15)
[2021-11-17] MEDS ORDERED: ONDANSETRON HCL 4 MG/2 ML VIAL IV PRN (19:15)
[2021-11-17] MEDS ORDERED: DEXTROSE (50%) 50ML SYRG IV PRN (19:30)
[2021-11-17] MEDS ORDERED: FUROSEMIDE 40 MG/4 ML VIAL IV ONE (19:30)
[2021-11-17] MEDS: AZITHROMYCIN 500MG/ 250ML 250 ML IV SCH (22:48)
[2021-11-17] MEDS: methylPREDNISolone SOD SUCC 125 MG/2 ML VL IV SCH (22:49)
[2021-11-17] MEDS: ACCU-CHEK COMFORT CURVE STRIP VI SCH (22:54)
[2021-11-17] MEDS: InsuLIN REG 1unit/0.01ml Soln (100units/ml) SC SCH (23:08)
[2021-11-17 23:39] LABS: Urine Bacteria NONE SEEN /hpf (None Seen); Urine Blood Negative /uL (Negative); Urine Specific Gravity 1.014 (1.001-1.035); Urine WBC <1 /hpf (0 - 5)
[2021-11-18] VITALS (8 sets, daily range): BP systolic 112–141; BP diastolic 44–77
[2021-11-18 05:36] LABS: Basophils # (auto) 0 10 ^3/uL (0-0.2); Basophils % (auto) 0.3 % (0.0-2.0); Eosinophils # (auto) 0 10 ^3/uL (0-0.8); Eosinophils % (auto) 0.1 % (0.0-7.0); Hematocrit 33.8 % (36.0-46.0); Hemoglobin 10.8 g/dL (12.2-16.2); Lymphocytes # (auto) 0.6 10 ^3/uL (0.4-5.4); Lymphocytes % (auto) 5.8 % (10.0-50.0); Mean Corpuscular Hemoglobin 28.4 pg (28.0-32.0); Mean Corpuscular Hgb Conc. 31.9 g/dL (32.0-36.0); Mean Corpuscular Volume 88.9 fL (80.0-100.0); Monocytes # (auto) 0.1 10 ^3/uL (0-1.3); Monocytes % (auto) 0.9 % (0.0-12.0); Neutrophils # (auto) 9.9 10 ^3/uL (1.6-8.6); Neutrophils % (auto) 92.9 % (37.0-80.0); Red Cell Distribution Width 15.9 % (11.8-14.3); White Blood Cell 10.7 10^3/uL (4.4-10.8)
[2021-11-18 05:49] LABS: Potassium 4.1 mmol/L (3.5-5.1)
[2021-11-18 06:04] LABS: Albumin 3.1 g/dL (3.4-5.0); BUN/Creatinine Ratio 27.1; Bilirubin, Total 0.4 mg/dL (0.2-1.0); Calcium 8.8 mg/dL (8.5-10.1); Total Protein 6.7 g/dL (6.4-8.2)
[2021-11-18] MEDS: InsuLIN REG 1unit/0.01ml Soln (100units/ml) SC SCH ×4 (06:16→22:24)
[2021-11-18] MEDS: LEVOTHYROXINE SODIUM 50 MCG TAB PO SCH (06:21)
[2021-11-18] MEDS: ACCU-CHEK COMFORT CURVE STRIP VI SCH ×4 (06:21→22:21)
[2021-11-18] MEDS: methylPREDNISolone SOD SUCC 125 MG/2 ML VL IV SCH ×2 (06:21→14:10)
[2021-11-18] MEDS: ENOXAPARIN SOD 40 MG/0.4 ML SYRINGE SC SCH (10:10)
[2021-11-18] MEDS: SERTRALINE HCL 50 MG TAB PO SCH (10:11)
[2021-11-18] MEDS: LISINOPRIL 10 MG TAB PO SCH (10:11)
[2021-11-18] MEDS ORDERED: ALBUTEROL SULF 2.5 MG/0.5ML(0.5%) NEB SOLN NEB PRN (11:15)
[2021-11-18] MEDS: IPRATROPIUM BROM 0.5 MG/2.5ML INH SOL NEB SCH ×2 (18:36→23:03)
[2021-11-18] MEDS: ALBUTEROL SULF 2.5 MG/0.5ML(0.5%) NEB SOLN NEB SCH ×2 (18:36→23:02)
[2021-11-18] MEDS: AZITHROMYCIN 500MG/ 250ML 250 ML IV SCH (20:21)
[2021-11-18] MEDS ORDERED: ATORVASTATIN 20 MG TAB PO SCH (22:00)
[2021-11-19 05:00] VITALS: BP 120/50
[2021-11-19] MEDS: ALBUTEROL SULF 2.5 MG/0.5ML(0.5%) NEB SOLN NEB SCH ×5 (06:40→22:15)
[2021-11-19] MEDS: IPRATROPIUM BROM 0.5 MG/2.5ML INH SOL NEB SCH ×5 (06:40→22:15)
[2021-11-19] MEDS: ACCU-CHEK COMFORT CURVE STRIP VI SCH ×3 (06:44→17:44)
[2021-11-19] MEDS: InsuLIN REG 1unit/0.01ml Soln (100units/ml) SC SCH ×3 (06:45→17:45)
[2021-11-19] MEDS: LEVOTHYROXINE SODIUM 50 MCG TAB PO SCH (06:56)
[2021-11-19 09:00] VITALS: BP 114/66
[2021-11-19] MEDS: methylPREDNISolone SOD SUCC 125 MG/2 ML VL IV SCH (09:50)
[2021-11-19] MEDS: SERTRALINE HCL 50 MG TAB PO SCH (09:50)
[2021-11-19] MEDS: ENOXAPARIN SOD 40 MG/0.4 ML SYRINGE SC SCH (09:50)
[2021-11-19] MEDS: LISINOPRIL 10 MG TAB PO SCH (09:51)
[2021-11-19 13:00] VITALS: BP 104/57
[2021-11-19 17:00] VITALS: BP 139/84
[2021-11-19] MEDS ORDERED: DEXTROSE (50%) 50ML SYRG IV PRN (19:15)
[2021-11-19] MEDS: AZITHROMYCIN 500MG/ 250ML 250 ML IV SCH (20:40)
[2021-11-19] MEDS: ACETAMINOPHEN 325 MG TAB PO PRN ×2 (20:54→22:18)
[2021-11-19 22:00] VITALS: BP 126/60
[2021-11-19] MEDS ORDERED: ATORVASTATIN 20 MG TAB PO SCH (22:00)
[2021-11-19] MEDS ORDERED: INSULIN LANTUS (GLARGINE) 1 /0.01ml (100units/ml) SC SCH (22:00)
[2021-11-20] MEDS: ACCU-CHEK COMFORT CURVE STRIP VI SCH ×3 (00:04→12:12)
[2021-11-20] MEDS: InsuLIN REG 1unit/0.01ml Soln (100units/ml) SC SCH ×3 (00:11→12:14)
[2021-11-20 05:00] VITALS: BP 143/94
[2021-11-20] MEDS: LEVOTHYROXINE SODIUM 50 MCG TAB PO SCH (06:35)
[2021-11-20] MEDS: ALBUTEROL SULF 2.5 MG/0.5ML(0.5%) NEB SOLN NEB SCH ×2 (06:47→10:35)
[2021-11-20] MEDS: IPRATROPIUM BROM 0.5 MG/2.5ML INH SOL NEB SCH ×2 (06:47→10:35)
[2021-11-20 07:37] VITALS: BP 118/63
[2021-11-20 09:00] VITALS: BP 118/63
[2021-11-20] MEDS: LISINOPRIL 10 MG TAB PO SCH (10:26)
[2021-11-20] MEDS: methylPREDNISolone SOD SUCC 125 MG/2 ML VL IV SCH (10:26)
[2021-11-20] MEDS: ENOXAPARIN SOD 40 MG/0.4 ML SYRINGE SC SCH (10:26)
[2021-11-20] MEDS: SERTRALINE HCL 50 MG TAB PO SCH (10:26)
[2021-11-20] MEDS ORDERED: ALBU0.084 NEB (11:52)
[2021-11-20] MEDS ORDERED: PRED20TA2 PO (11:52)
[2021-11-20] MEDS ORDERED: BUDE1AER4 IN (11:52)
[2021-11-20 13:50] VITALS: BP 148/70
== END 2021-11-20 14:37 | disposition home or self-care (01) | DRG 140 ==
LOC: EDBD 15:49 → ER 15:49 → TELE 19:13 → TELE-EAST 11-18 00:32
PROVIDERS: ADMIT Internal Medicine; ATTEND Internal Medicine Pulmonary Disease
DX: J44.1 Chronic obstructive pulmonary disease with (acute) exacerbation (principal); I27.20 Pulmonary hypertension, unspecified; I50.32 Chronic diastolic (congestive) heart failure; J96.11 Chronic respiratory failure with hypoxia; I11.0 Hypertensive heart disease with heart failure; E03.9 Hypothyroidism, unspecified; F32.A Depression, unspecified; Z20.822 Contact with and (suspected) exposure to COVID-19; E78.5 Hyperlipidemia, unspecified; E11.65 Type 2 diabetes mellitus with hyperglycemia; Z79.84 Long term (current) use of oral hypoglycemic drugs; Z79.899 Other long term (current) drug therapy; I25.2 Old myocardial infarction
CPT/HCPCS: 36415; 71045; 80053; 81001; 82962; 83605; 83735; 83880; 84484; 85025; 85379; 87040; 93005; 94640; 96365; 96375; G0378; J1815